=== PATIENT | male | born 1930 | race Caucasian/White ===

== ENCOUNTER → 2016-05-20 | Outpatient (REF) | payer MEDICARE ==
[2016-05-20 13:02] LABS: BASOPHILS % (AUTO) 0 % (0-2); EOSINOPHILS # (AUTO) 0.2 10^3uL; EOSINOPHILS % (AUTO) 3 % (0-4); LYMPHOCYTES # (AUTO) 1.5 X10^3; MEAN CORPUSCULAR HEMOGLOBIN 28.8 PG (26.0-34.0); MEAN CORPUSCULAR HGB CONC 32.1 g/dL (31.0-37.0); MEAN CORPUSCULAR VOLUME 90 FL (80-100); MEAN PLATELET VOLUME 11.5 FL (6.0-9.5); MONOCYTES # (AUTO) 0.9 X10^3; MONOCYTES % (AUTO) 14 % (3-11); NEUTROPHILS # (AUTO) 3.4 X10^3; NEUTROPHILS % (AUTO) 57 % (51-67); PLATELET COUNT 143 10^3uL (150-450); WHITE BLOOD COUNT 5.92 10^3uL (4.0-11.0)
== END ==
LOC: LAB 12:15
PROVIDERS: ATTEND Internal Medicine
DX: D64.89 Other specified anemias (principal)
CPT/HCPCS: 85025

== ENCOUNTER → 2016-08-13 | Outpatient (REF) | payer MEDICARE ==
[~2016-08-13] MED LIST: ASCO500T6 PO; ASPI-860 PO; ATEN-154 PO; ATN50T PO; DABI75CA2 PO; DIGO125T6 PO; DIGO250T PO; DIPH1TAB45 PO; FURO-124 PO; FURO80TA62 PO; HCT25T PO; HYDR-3881 PO; LSNP20T PO; MULT-954 PO; SPIR25TA PO; VANCADD1 IV; ZINC50TA31 PO
[2016-08-13 12:42] LABS: BASOPHILS % (AUTO) 1 % (0-2); EOSINOPHILS % (AUTO) 1 % (0-4); MEAN CORPUSCULAR HEMOGLOBIN 27.7 PG (26.0-34.0); MEAN CORPUSCULAR VOLUME 87 FL (80-100); MEAN PLATELET VOLUME 10.5 FL (6.0-9.5); MONOCYTES # (AUTO) 0.5 X10^3; MONOCYTES % (AUTO) 11 % (3-11); NEUTROPHILS # (AUTO) 3.1 X10^3; NEUTROPHILS % (AUTO) 66 % (51-67); PLATELET COUNT 167 10^3uL (150-450); WHITE BLOOD COUNT 4.73 10^3uL (4.0-11.0)
[2016-08-13 12:56] LABS: ANION GAP 14.1 MEQ/L (3-15)
== END ==
LOC: LAB 12:15
PROVIDERS: ATTEND Internal Medicine
DX: I10 Essential (primary) hypertension (principal); R60.0 Localized edema; I50.43 Acute on chronic combined systolic (congestive) and diastolic (congestive) heart failure; D64.89 Other specified anemias
CPT/HCPCS: 80048; 82728; 85025